=== PATIENT | female | born 1975 | race African-American/Black ===

== ENCOUNTER 2017-05-04 05:38 | Day surgery (SDC) | payer OTHER ==
[2017-05-03 08:51] VITALS: BMI 24.4
--- NOTE | 2017-05-04 08:38 | HP ---
[facility] - Chief Complaint Chief Complaint: right knee pain - Past Medical History Allergies/Adverse Reactions: Allergies Allergy/AdvReac Type Severity Reaction Status Date / Time No Known Drug Allergies Allergy Verified 05/03/17 08:55 ...LMP: 04/30/17 - Current Medications Current Medications: Home Medications Medication Instructions Recorded Multivitamin [One Daily] 1 each PO DAILY 05/03/17 [facility] Physical Exam - Physical Examination Extremities: Other (+ joint line tenderness) Satellite Impression/Plan - Impression/Plan Impression: internal drangement right knee Operative Procedure: arthroscopy right knee Date to be Performed: 05/04/17
[2017-05-04] MEDS ORDERED: oxyCODONE HCL 5 MG TABLET PO PRN (08:41)
[2017-05-04] MEDS ORDERED: ONDANSETRON 4 MG/2 ML VIAL IVPUSH PRN (08:41)
[2017-05-04] MEDS ORDERED: LACTATED RINGERS SOLUTION 1,000 ML IV SCH (08:45)
[2017-05-04] MEDS ORDERED: BUPIVACAINE HCL/PF 0.5% (5MG/ML) 10 ML VIAL ONE (10:06)
[2017-05-04] MEDS ORDERED: MIDAZOLAM HCL 2 MG/2 ML SINGLE DOSE VIAL ONE (10:20)
[2017-05-04] MEDS ORDERED: LIDOCAINE 1%/EPI 1:100000 (20 ML MULTI DOSE VIAL) IJ ONE ×2 (10:41→10:49)
[2017-05-04] MEDS ORDERED: BUPIVACAINE HCL/PF 0.5% (5MG/ML) 10 ML VIAL IJ ONE ×2 (10:41→10:49)
--- NOTE | 2017-05-04 11:12 | OP ---
Operative Note - Note: Operative Date: 05/04/17 Pre-Operative Diagnosis: right medial meniscus tear Operation: arthroscopy and partial MM Post-Operative Diagnosis: Same as Pre-op Anesthesia: General Estimated Blood Loss (mls): 0 Operative Report Dictated: Yes
--- NOTE | 2017-05-04 12:28 | OP ---
DATE OF OPERATION: 05/04/2017 PREOPERATIVE DIAGNOSIS: Internal derangement, right knee / medial meniscus tear. POSTOPERATIVE DIAGNOSIS: Internal derangement, right knee / bucket-handle tear of the right medial meniscus. PROCEDURE: Arthroscopy, right knee, with partial medial meniscectomy. SURGICAL ATTENDING: Paulie Garcia M.D. ANESTHESIA: General with LMA. CLOSURE: 4-0 nylon. COMPLICATIONS: None. CONDITION: To recovery room in stable condition. DESCRIPTION OF OPERATIVE PROCEDURE: Patient was taken to the operating room on May 04, 2017. General anesthesia with LMA was administered by the anesthesiologist. Right lower extremity was prepped and draped in usual sterile fashion. The medial and lateral infrapatellar portal sites were infiltrated with 1% Xylocaine with epinephrine. Both portals were then made with a 15 blade followed by a blunt trocar. The scope was placed in the lateral infrapatellar portal and up into the suprapatellar pouch. The knee was then inflated with a cocktail of 10 mL of 1% Xylocaine, 10 mL of 0.5% Marcaine, 20 mL of arthroscopic saline. The medial and lateral gutters were visualized to be clean. The undersurface of the patella and trochlea were visualized to be intact. With valgus stress on the knee, the medial compartment was entered. Medial meniscus was found to have a complex bucket-handle tear of the medial meniscus. The residual meniscus also had a significant amount of horizontal tearing, as well. It was then decided to do a meniscectomy. An accessory direct medial portal was made with the spinal needle followed by a 15-blade and blunt trocar. The scope moved to the standard inferomedial portal. A Izzy clamp was placed on the meniscus anteriorly. It was first cut on its most medial portion and then delivered out the lateral portal being cut by the most medial portal as far back as possible, delivering the whole bucket-handle tear out of the lateral portal. The scope was placed back into the lateral portal. The residual meniscus horizontal tear component was debrided back to smooth, stable meniscal tissue using meniscal biters and arthroscopic shaver. The medial femoral condyle was run and found to be intact as was the medial tibial plateau at 90 degrees. The ACL was visualized, probed and found to be intact. In the figure-of-4 position, the lateral compartment was entered. Lateral meniscus was visualized, probed and found to be intact. The lateral femoral condyle was run and found to be intact as was the lateral tibial plateau. The patella and trochlea were found to be intact, as well. The knee was irrigated with copious amounts of irrigation. The portals were closed using 3-0 nylon suture. Then, 20 mL of 0.5% Marcaine was infused into the knee for postoperative analgesia prior to pulling the last trocar. Sterile pressure dressing was placed over the knee. Patient was awakened from anesthesia and transferred to recovery room in stable condition. No complications. Estimated blood loss was negligible. Harley [id number]
[2017-05-04 14:29] VITALS: TEMP 97.8
[2017-05-04 14:30] VITALS: BP 148/87; PULSE 86
--- NOTE | 2017-05-07 17:14 | PATH ---
Surgical Pathology Report Patient Name: MEÑO PÉREZ [facility]. Rec. #: [id number] /Age/Gender: 1975 (Age: 41) / F Account: [id number] Location: [facility] SURGICAL Taken: 05/04/2017 Received: 05/04/2017 Reported: 05/07/2017 Physicians: Paulie Garcia M.D. Specimen(s) Received KNEE SHAVINGS Clinical History Right knee tear Final Diagnosis SHAVINGS, RIGHT KNEE, ARTHROSCOPY: FRAGMENTS OF CARTILAGE WITH DEGENERATIVE CHANGES, FIBROADIPOSE TISSUE, AND SYNOVIUM. Electronically Signed Adwoa Cloud M.D. Gross Description Received in formalin, labeled "right knee shavings," is a 4.5 x 3.7 x 0.4 cm. aggregate of leger-yellow soft tissue fragments. A wireless sales representative portion is submitted in one cassette. 05/04/201705/04/2017
== END 2017-05-04 13:50 | disposition home or self-care (01) ==
LOC: JASU-SURG 05:38
PROVIDERS: ATTEND Orthopaedic Surgery
PROC: 0SBC4ZZ Excision of Right Knee Joint, Percutaneous Endoscopic Approach (ICD-10-PCS; principal; 2017-05-04 10:15)
DX: S83.211A Bucket-handle tear of medial meniscus, current injury, right knee, initial encounter (principal); X58.XXXA Exposure to other specified factors, initial encounter; Y93.9 Activity, unspecified; Y92.9 Unspecified place or not applicable; Y99.9 Unspecified external cause status
CPT/HCPCS: 84703; 88304-TC; 94760